=== PATIENT | female | born 1985 | race Caucasian/White ===

== ENCOUNTER 2016-06-25 14:03 | Emergency (ER) | payer OTHER ==
--- NOTE | 2016-06-25 14:35 | ED NURSING NOTES ---
Clinical Report - Nurses [facility] [address] [place] [address] 06/25/2016 14:05 [id number] Triage time 14:16 Jun 25 2016. Acuity: LEVEL 4. Chief Complaint: SINUS PAIN, NASAL CONGESTION and SORE THROAT. 14:21 06/25/16. SEPSIS SCREEN: Sepsis Screen. Negative (no infection suspected/documented). ANA COMA SCORE: Ana Coma Scale: 15- eyes open spontaneously (4); best verbal response- oriented x 4 (5); best motor response- obeys commands (6). --14:21 Cassidy Mcgraw R.N. 14:16 06/25/16. BP: 111/64. HR: 91. RR: 18. O2 saturation: 100%. Temp: 97.9 F. Pain level now: 06/30. --14:21 Cassidy Mcgraw R.N. Weight: 74.8 kg stated. Height/Length: 62 inches Per Patient. BMI: 30.2. --14:15 Cassidy Mcgraw R.N. Medications LaMICtal Oral. --14:18 Cassidy Mcgraw R.N. Magnesium. --14:19 Cassidy Mcgraw R.N. Potassium. --14:19 Cassidy Mcgraw R.N. Calcium. --14:19 Cassidy Mcgraw R.N. Multivitamins. --14:19 Cassidy Mcgraw R.N. Allergies Amoxicillin. --14:19 Cassidy Mcgraw R.N. Zofran. --14:19 Cassidy Mcgraw R.N. Medication/allergy information source: the patient. --14:21 Cassidy Mcgraw R.N. History Arrived by private vehicle. Historian: patient. Accompanied by family. Onset. (3 days ago). 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 PAST MEDICAL HX: Last normal menstrual period- mid may. SOCIAL HX: Never smoker. Occasional alcohol use; consumes wine by the glass. No drug use. No infectious disease exposure. ABUSE ASSESSMENT: No report of abuse. SELF HARM ASSESSMENT: A self harm assessment was performed. The patient answered "no" to the question "Have you recently felt down, depressed, or hopeless?", "Have you noticed less interest or pleasure in doing things?", "Do you have thoughts of harming or killing yourself?", "Are you here because you tried to hurt yourself?", "Have you ever tried to hurt yourself before today?", "Have you recently had thoughts about harming or killing others?" and "Do you have any dangerous items in your possession?". FALL RISK ASSESSMENT: Fall risk assessment completed. No fall risk identified. NUTRITIONAL RISK ASSESSMENT: The nutritional risk assessment revealed no deficiencies. FUNCTIONAL ASSESSMENT: Functional assessment: no impairments noted. LEARNING NEEDS ASSESSMENT: The learning needs assessment revealed no barriers. SKIN INTEGRITY ASSESSMENT: Skin integrity risk assessment completed. No skin integrity risk identified. --14:21 Cassidy Mcgraw R.N. PROBLEMS: Epilepsy. --14:19 Cassidy Mcgraw R.N. ADDITIONAL SURGERIES: Appendectomy. Cholecystectomy. Tonsillectomy. --14:19 Cassidy Mcgraw R.N. Interventions ID band on patient. --14:21 Cassidy Mcgraw R.N. PHYSICAL ASSESSMENT 14:06/25/16. Ambulatory to room. GENERAL / NEURO / PSYCH: Alert. Oriented X 4. Appears in no acute distress. HEENT: Pupils equal, round and reactive to light. Sinus tenderness present. Runny nose. Mucous membranes are pink. RESPIRATORY: Breath sounds within normal limits. CVS: Pulses within normal limits. GI / : Abdomen nontender. SKIN: Skin intact. Skin is warm and dry. Normal skin turgor. --14:24 Cassidy Mcgraw R.N. NURSING PROGRESS NOTES 14:24 06/25/16. The initial plan of care for this patient includes an assessment with efforts to address the presence of pain; impairment of the respiratory system. This plan of care was discussed with the patient. Patient gowned. Reassurance given. Patient identifiers checked. Call light placed in reach. Side rails up x 1. Bed placed in lowest position. Brakes of bed on. Patient ready for evaluation. --14:24 Cassidy Mcgraw R.N. DISPOSITION / DISCHARGE 14:41 06/25/16. Departure time: 14:41 Jun 25 2016. Condition at departure: improved and stable. The goals identified in the patient's plan of care were met. No learning barriers present. Discharge instructions provided and reviewed with the patient. Reviewed medication(s) side effects, precautions, dosing and course information. Prescription(s) given to the patient. Reviewed fever care instructions. Reviewed referral to a primary care physician for followup. Summary of care provided to patient. Patient verbalized understanding. Written instructions provided in Andorran. The patient was discharged home and accompanied by family. She left the Emergency Department ambulatory and via private vehicle. Patient driving. --14:42 Cassidy Mcgraw R.N. 14:16 06/25/16. BP: 111/64. HR: 91. RR: 18. O2 saturation: 100%. Temp: 97.9 F. Pain level now: 06/30. --14:42 Cassidy Mcgraw R.N. Locked/Released at 06/25/2016 14:42 by Cassidy Mcgraw R.N.
--- NOTE | 2016-06-25 14:35 | ED NURSING NOTES ---
Clinical Report - Nurses Located Within [facility] [address] [place] [address] 06/25/2016 14:05 [id number] TRI[facility] Triage time 14:16 Jun 25 2016. Acuity: LEVEL 4. Chief Complaint: SINUS PAIN, NASAL CONGESTION and SORE THROAT. 14:21 06/25/16. SEPSIS SCREEN: Sepsis Screen. Negative (no infection suspected/documented). ANA COMA SCORE: Ana Coma Scale: 15- eyes open spontaneously (4); best verbal response- oriented x 4 (5); best motor response- obeys commands (6). --14:21 Cassidy Mcgraw R.N. 14:16 06/25/16. BP: 111/64. HR: 91. RR: 18. O2 saturation: 100%. Temp: 97.9 F. Pain level now: 06/30. --14:21 Cassidy Mcgraw R.N. Weight: 74.8 kg stated. Height/Length: 62 inches Per Patient. BMI: 30.2. --14:15 Cassidy Mcgraw R.N. Medications LaMICtal Oral. --14:18 Cassidy Mcgraw R.N. Magnesium. --14:19 Cassidy Mcgraw R.N. Potassium. --14:19 Cassidy Mcgraw R.N. Calcium. --14:19 Cassidy Mcgraw R.N. Multivitamins. --14:19 Cassidy Mcgraw R.N. Allergies Amoxicillin. --14:19 Cassidy Mcgraw R.N. Zofran. --14:19 Cassidy Mcgraw R.N. Medication/allergy information source: the patient. --14:21 Cassidy Mcgraw R.N. History Arrived by private vehicle. Historian: patient. Accompanied by family. Onset. (3 days ago). 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 PAST MEDICAL HX: Last normal menstrual period- mid may. SOCIAL HX: Never smoker. Occasional alcohol use; consumes wine by the glass. No drug use. No infectious disease exposure. ABUSE ASSESSMENT: No report of abuse. SELF HARM ASSESSMENT: A self harm assessment was performed. The patient answered "no" to the question "Have you recently felt down, depressed, or hopeless?", "Have you noticed less interest or pleasure in doing things?", "Do you have thoughts of harming or killing yourself?", "Are you here because you tried to hurt yourself?", "Have you ever tried to hurt yourself before today?", "Have you recently had thoughts about harming or killing others?" and "Do you have any dangerous items in your possession?". FALL RISK ASSESSMENT: Fall risk assessment completed. No fall risk identified. NUTRITIONAL RISK ASSESSMENT: The nutritional risk assessment revealed no deficiencies. FUNCTIONAL ASSESSMENT: Functional assessment: no impairments noted. LEARNING NEEDS ASSESSMENT: The learning needs assessment revealed no barriers. SKIN INTEGRITY ASSESSMENT: Skin integrity risk assessment completed. No skin integrity risk identified. --14:21 Cassidy Mcgraw R.N. PROBLEMS: Epilepsy. --14:19 Cassidy Mcgraw R.N. ADDITIONAL SURGERIES: Appendectomy. Cholecystectomy. Tonsillectomy. --14:19 Cassidy Mcgraw R.N. Interventions ID band on patient. --14:21 Cassidy Mcgraw R.N. PHYSICAL ASSESSMENT 14:06/25/16. Ambulatory to room. GENERAL / NEURO / PSYCH: Alert. Oriented X 4. Appears in no acute distress. HEENT: Pupils equal, round and reactive to light. Sinus tenderness present. Runny nose. Mucous membranes are pink. RESPIRATORY: Breath sounds within normal limits. CVS: Pulses within normal limits. GI / : Abdomen nontender. SKIN: Skin intact. Skin is warm and dry. Normal skin turgor. --14:24 Cassidy Mcgraw R.N. NURSING PROGRESS NOTES 14:24 06/25/16. The initial plan of care for this patient includes an assessment with efforts to address the presence of pain; impairment of the respiratory system. This plan of care was discussed with the patient. Patient gowned. Reassurance given. Patient identifiers checked. Call light placed in reach. Side rails up x 1. Bed placed in lowest position. Brakes of bed on. Patient ready for evaluation. --14:24 Cassidy Mcgraw R.N. DISPOSITION / DISCHARGE 14:41 06/25/16. Departure time: 14:41 Jun 25 2016. Condition at departure: improved and stable. The goals identified in the patient's plan of care were met. No learning barriers present. Discharge instructions provided and reviewed with the patient. Reviewed medication(s) side effects, precautions, dosing and course information. Prescription(s) given to the patient. Reviewed fever care instructions. Reviewed referral to a primary care physician for followup. Summary of care provided to patient. Patient verbalized understanding. Written instructions provided in [place]. The patient was discharged home and accompanied by family. She left the Emergency Department ambulatory and via private vehicle. Patient driving. --14:42 Cassidy Mcgraw R.N. 14:16 06/25/16. BP: 111/64. HR: 91. RR: 18. O2 saturation: 100%. Temp: 97.9 F. Pain level now: 06/30. --14:42 Cassidy Mcgraw R.N. Locked/Released at 06/25/2016 14:42 by Cassidy Mcgraw R.N.
--- NOTE | 2016-06-25 14:35 | ED CLINICAL REPORT ---
Clinical Report - Physicians/Mid Levels [facility] [address] [place] [address] 06/25/2016 14:05 Patient: RITA NICHOLAS Time Seen: 14:14; initial patient contact, initial documentation, patient care assumed. Arrived- By private vehicle. Historian- patient. HISTORY OF PRESENT ILLNESS Chief Complaint: SORE THROAT and SINUS PAIN. This started about 3 - 4 days ago and is still present. The illness is described as moderate. No cough, sputum production, difficulty breathing or chest discomfort or pain. She has had fever of 102 F (fever on thur, but none since). She has had a sore throat, nasal congestion, sinus pressure and ear pain. Additional history - No known contact with a sick individual. No recent travel. Similar symptoms previously: None. Recent medical care: Not recently seen/assessed. REVIEW OF SYSTEMS No vomiting or diarrhea. All systems otherwise negative, except as recorded above. PAST HISTORY See nurses notes. PROBLEMS: Epilepsy. --14:19 Cassidy Mcgraw R.N. ADDITIONAL SURGERIES: Appendectomy. Cholecystectomy. Tonsillectomy. --14:19 Cassidy Mcgraw R.N. SOCIAL HISTORY Never smoker. Occasional alcohol use. Not exposed to second-hand smoke at home. No drug use. No recent travel. Is a local resident. FAMILY HISTORY Negative. ADDITIONAL NOTES The nursing notes have been reviewed with agreement regarding the chief complaint, HPI, ROS, PMH and patient medications and allergies. PHYSICAL EXAM Vital Signs: 06/25/2016 14:16 BP: 111/64. HR: 91. RR: 18. O2 saturation: 100%. Temp: 97.9 F. Pain level now: 2/10. Have been reviewed as normal and appear to be correct. Appearance: Alert. No acute distress. Head: Tenderness present to percussion/palpation of the sinuses: mild left frontal tenderness, maxillary tenderness. Eyes: Pupils equal, round and reactive to light. Eyes normal inspection. ENT: Ears normal. Nose abnormal. Pharynx normal. Uvula midline. Neck: Normal inspection. Neck supple. CVS: Normal heart rate and rhythm. Heart sounds normal. Pulses normal. Respiratory: No respiratory distress. Breath sounds normal. Back: Normal inspection. Skin: Skin warm and dry. Normal skin color. No rash. Normal skin turgor. Extremities: Extremities exhibit normal ROM. No lower extremity edema. Neuro: Oriented X 3. No motor deficit. No sensory deficit. PROGRESS AND PROCEDURES Patient counseled in person regarding the patient's stable condition and diagnosis. 14:35. Differential Diagnosis: Other possible considerations: uri, flu, allergies, sinusitis, viral illness, bronchitis,pneumonia. Above considerations are based on history and physical exam. Differential diagnosis was discussed with patient. Disposition: Discharged home in good and unchanged condition (14:35). Condition: good and stable. CLINICAL IMPRESSION Acute ethmoidal and frontal sinusitis INSTRUCTIONS Alternate Tylenol (Acetaminophen) and Motrin (Ibuprofen) for fever, temperature greater than 101 degrees orally. Take according to label instructions. Do not work today, tomorrow. Drink plenty of fluids for the next 24 hours until better. Warnings: GENERAL WARNINGS: Return or contact your physician immediately if your condition worsens or changes unexpectedly, if not improving as expected, or if other problems arise. Specifically return if problem worsens. OTC Medications: Sudafed 120 mg extended release tabs (available over the counter): take 1 tablet orally every 12 hours for 5 days. Dispense ten (10). No refill. Follow-up: Follow up with your doctor in about five days even if well. Call for an appointment. Summary of care provided to patient. Understanding of the discharge instructions verbalized by patient. (Electronically signed by Antoinette De La Vega A.R.N.P. 06/25/2016 15:08)
--- NOTE | 2016-06-25 15:09 | ED MAR SUMMARY ---
..... Medication Administration Record [facility] [address] [id number] Patient: RITA NICHOLAS Visit ID: [id number] 31y, F Weight: 74.8 kg Height/Length: 62 in BMI: 30.2 ALLERGIES: Zofran, Amoxicillin
--- NOTE | 2016-06-25 15:09 | ED DISCHARGE INSTRUCTIONS ---
Patient: RITA NICHOLAS General Instructions [facility] VisitID: [id number] [place] [address] 31y, F Registration Date/Time: 06/25/2016 Acute ethmoidal and frontal sinusitis INSTRUCTIONS Alternate Tylenol (Acetaminophen) and Motrin (Ibuprofen) for fever, temperature greater than 101 degrees orally. Take according to label instructions. Do not work today, tomorrow. Drink plenty of fluids for the next 24 hours until better. Warnings: GENERAL WARNINGS: Return or contact your physician immediately if your condition worsens or changes unexpectedly, if not improving as expected, or if other problems arise. Specifically return if problem worsens. OTC Medications: Sudafed 120 mg extended release tabs (available over the counter): take 1 tablet orally every 12 hours for 5 days. Dispense ten (10). No refill. Follow-up: Follow up with your doctor in about five days even if well. Call for an appointment. Summary of care provided to patient. Understanding of the discharge instructions verbalized by patient. ADDITIONAL INFORMATION Sinusitis [Abx Tx] The sinuses are air-filled spaces within the bones of the face. They connect to the inside of the nose. Sinusitis is an inflammation of the tissue lining the sinus cavity. Sinus inflammation can occur during a cold or hay-fever (allergies to pollens and other particles in the air) and cause symptoms of sinus congestion and fullness. A sinus infection causes fever, headache and facial pain. There is usually green or yellow drainage from the nose or into the back of the throat (post-nasal drip). Antibiotics are prescribed to treat this condition. Home Care: Drink plenty of water, hot tea, and other liquids to stay well hydrated. This thins the mucus and promotes sinus drainage. Apply heat to the painful areas of the face. Use a towel soaked in hot water. Or, offset machine operator the shower and direct the hot spray onto your face. This is a good way to inhale warm water vapor and get heat on your face at the same time. (Cover your mouth and nose with your hands so you can still breathe as you do this.) Use a vaporizer with products such as FashionGuideub (contains menthol) at night. Suck on peppermint, menthol or eucalyptus hard candies during the day. An expectorant containing guaifenesin (such as Robitussin), helps to thin the mucus and promote drainage from the sinuses. [id number] decongestants may be used unless a similar medicine was prescribed. Nasal sprays work the fastest. Use one that contains phenylephrine (Roberto-synephrine, Sinex and others) or oxymetazoline (Afrin). First blow the nose gently to remove mucus, then apply the drops. Do not use these medicines more often than directed on the label or for more than three days or symptoms may worsen. You may also use tablets containing pseudoephedrine (Sudafed). Many sinus remedies combine ingredients, which may increase side effects. Read the labels or ask the pharmacist for help. NOTE: Persons with high blood pressure should not use decongestants. They can raise blood pressure. Antihistamines are useful if allergies are a cause of your sinusitis. The mildest one is chlorpheniramine (available without a prescription). The dose for adults is 8-12mg three times a day. [NOTE: Do not use chlorpheniramine if you have glaucoma or if you are a man with trouble urinating due to an enlarged prostate.] Claritin (loratidine) is an antihistamine that causes less drowsiness and is a good alternative for daytime use. Do not use nasal rinses or irrigation during an acute sinus infection, unless advised by your doctor. Rinsing may spread the infection to other sinuses. You may use acetaminophen (Tylenol) or ibuprofen (Motrin, Advil) to control pain, unless another pain medicine was prescribed. [ NOTE: If you have chronic liver or kidney disease or ever had a stomach ulcer, talk with your doctor before using these medicines.] (Aspirin should never be used in anyone under 18 years of age who is ill with a fever. It may cause severe liver damage.) Finish the full course, even if you are feeling better after a few days. Follow Up with your doctor or this facility in one week or as instructed by our staff if not improving. Get Prompt Medical Attention if any of the following occur: Facial pain or headache becomes more severe Stiff neck Unusual drowsiness or confusion, or not acting like your normal self Swelling of the forehead or eyelids Vision problems including blurred or double vision Fever of 100.4F (38C) or higher, or as directed by your healthcare provider Seizure Fever Control (Adult) A fever is a natural reaction of the body to an illness. In most cases, the temperature itself is not harmful. It actually helps the body fight infections. A fever does not need to be treated unless you feel very uncomfortable. Home Care If you feel warm, check your temperature. If you feel very uncomfortable and your temperature is at or higher than 100.4F (38C) oral, you may take acetaminophen (Tylenol) every 4 to 6 hours. If you cant take or keep down oral medicine, ask your pharmacist for Tylenol suppositories, which you can get without a prescription. If the fever does not respond to acetaminophen within 1 hour, take ibuprofen (Advil or Motrin). If this works, keep taking the ibuprofen every 6 to 8 hours. Note: If you have chronic liver or kidney disease or ever had a stomach ulcer or GI bleeding, talk with your doctor before using these medications. If either medication alone does not keep the fever down, you may alternate the two medicines every 3 to 4 hours, only if your healthcare provider has instructed you to do so. For example, take Motrin then wait 3 hours, take Tylenol then wait 3 hours, take Motrin, and so on. Follow your healthcare providers instructions exactly. Clothing: Keep clothing light because excess body heat is lost through the skin. The fever will go up if you wear extra layers or wrap in blankets. Fluids: Fever causes the body to lose water through evaporation. Drink plenty of fluids such as water, juice, clear sodas, precious fred, or lemonade. Do not use aspirin in anyone under 18 years of age who is ill with a fever. It can cause severe liver damage. Follow Up with your doctor or as advised by our staff if you do not get better after 48 hours. Get Prompt Medical Attention if any of the following occur: Fever does not get better after taking fever medication Fast or difficult breathing Earache, sinus pain, stiff or painful neck, headache, repeated diarrhea or vomiting You feel unusually irritable, drowsy, or confused A rash appears You feel weak or dizzy, or that you might faint Pseudoephedrine Hydrochloride Oral tablet [Abuse Deterrent] What is this medicine? PSEUDOEPHEDRINE (robert whitehead e FED rin) is a decongestant. It is used to treat congestion of the nose or sinuses. How should I use this medicine? Take this medicine by mouth with a glass of water. Follow the directions on the package or prescription label. Take your medicine at regular intervals. Do not take your medicine more often than directed. Talk to your physician executive regarding the use of this medicine in children. While this drug may be prescribed for children as young as 6 years of age for selected conditions, precautions do apply. Patients over 65 years old may have a stronger reaction and need a smaller dose. What side effects may I notice from receiving this medicine? Side effects that you should report to your doctor or health medicare biller as soon as possible: allergic reactions like skin rash, itching or hives, swelling of the face, lips, or tongue bloody diarrhea with stomach pain breathing problems chest pain confused, agitated, nervous fast, irregular heartbeat feeling faint or lightheaded, falls hallucinations high blood pressure pain, tingling, numbness in the hands or feet trouble passing urine or change in the amount of urine trouble sleeping Side effects that usually do not require medical attention (report to your doctor or health medicare biller if they continue or are bothersome): headache loss of appetite nausea, stomach upset What may interact with this medicine? Do not take this medicine with any of the following medications: bromocriptine ergot alkaloids like dihydroergotamine, ergonovine, ergotamine, methylergonovine MAOIs like Carbex, Eldepryl, Marplan, Nardil, and Parnate stimulant medicines for attention disorders, weight loss, or to stay awake This medicine may also interact with the following medications: alcohol atropine bretylium caffeine digoxin linezolid mecamylamine medicines for blood pressure medicines for depression, anxiety, or psychotic disturbances like fluoxetine, sertraline medicines for enlarged prostate medicines for sleep other medicines for cold, cough, or allergy procarbazine reserpine some heart medicines like metoprolol Kiskimere's Wort What if I miss a dose? If you miss a dose, take it as soon as you can. If it is almost time for your next dose, take only that dose. Do not take double or extra doses. Where should I keep my medicine? Keep out of the reach of children. Store at room temperature between 15 and 25 degrees C (59 and 77 degrees F). Protect from heat and moisture. Throw away any unused medicine after the expiration date. What should I tell my health care provider before I take this medicine? They need to know if you have any of the following conditions: diabetes glaucoma heart disease high blood pressure kidney disease prostate trouble taken an MAOI like Carbex, Eldepryl, Marplan, Nardil, or Parnate in last 14 days thyroid disease trouble passing urine an unusual or allergic reaction to pseudoephedrine, other medicines, foods, dyes, or preservatives or trying to get breast-feeding What should I watch for while using this medicine? Tell your doctor or healthcare professional if your symptoms do not start to get better or if they get worse. See your doctor if you are not better in 7 days or if you have a fever. You have been given the following additional information: Sinusitis, Abx Tx Fever Control (Adult) Pseudoephedrine Hydrochloride Oral tablet [Abuse Deterrent] Do not work today, tomorrow. (Electronically signed by Antoinette De La Vega A.R.NChristianPChristian 06/25/2016 15:08)
--- NOTE | 2016-06-25 15:09 | ED MED RECONCILIATION SUMMARY ---
Patient: RITA NICHOLAS Medication Reconciliation Report [facility] VisitID: [id number] [address] [place] [address] 31y, F Registration Date/Time: 06/25/2016 Weight: 74.8 kg Height/Length: 62 in. BMI: 30.2 ALLERGIES: Amoxicillin, Zofran The patient's Home Medications are listed below: THE FOLLOWING MEDICATIONS NEED TO BE RECONCILED: Calcium LaMICtal Oral Magnesium Multivitamins Potassium The source(s) of the original Home Medication information: patient The following Medications were given to the patient in the Emergency Department: None. The following Medications were prescribed to the patient: Sudafed 120 mg extended release tabs (available over the counter): take 1 tablet orally every 12 hours for 5 days. Dispense ten (10). No refill. -- Antoinette De La Vega A.R.N.P.
--- NOTE | 2016-06-25 15:09 | ED MED RECONCILIATION SUMMARY ---
Patient: RITA NICHOLAS Medication Reconciliation Report [facility] VisitID: [id number] [address] [place] [address] 31y, F Registration Date/Time: 06/25/2016 Weight: 74.8 kg Height/Length: 62 in. BMI: 30.2 ALLERGIES: Amoxicillin, Zofran The patient's Home Medications are listed below: THE FOLLOWING MEDICATIONS NEED TO BE RECONCILED: Calcium LaMICtal Oral Magnesium Multivitamins Potassium The source(s) of the original Home Medication information: patient The following Medications were given to the patient in the Emergency Department: None. The following Medications were prescribed to the patient: Sudafed 120 mg extended release tabs (available over the counter): take 1 tablet orally every 12 hours for 5 days. Dispense ten (10). No refill. -- Antoinette De La Vega A.R.N.P.
--- NOTE | 2016-06-25 15:09 | ED MAR SUMMARY ---
..... Medication Administration Record [facility] [address] [id number] Patient: RITA NICHOLAS Visit ID: [id number] 31y, F Weight: 74.8 kg Height/Length: 62 in BMI: 30.2 ALLERGIES: Zofran, Amoxicillin
== END 2016-06-25 14:41 | disposition home or self-care (01) ==
LOC: ED SRH 14:03
DX: J01.10 Acute frontal sinusitis, unspecified (principal); J01.20 Acute ethmoidal sinusitis, unspecified; Z88.0 Allergy status to penicillin; Z88.8 Allergy status to other drugs, medicaments and biological substances